=== PATIENT | female | born 1990 | race Asian ===

== ENCOUNTER 2016-08-18 01:44 | Emergency (ER) | payer OTHER ==
[~2016-08-18] VITALS: Ht 172.7 cm; Wt 66.0 kg
[2016-08-18 01:47] VITALS: TEMP 36.8; Ht 172.7 cm; Wt 66.0 kg
[2016-08-18] MEDS ORDERED: OXYCODONE HCL IR 5 MG TAB (IMMEDIATE RELEASE) PO STA (02:02)
--- NOTE | 2016-08-18 02:04 | EMERGENCY ROOM VISIT NOTE ---
History Report prepared by Wes: Shavonne Barbosa Under the Supervision of: Dr. Evan Jackson M.D. First contact with patient: 01:52 Chief Complaint: ABDOMINAL PAIN Stated Complaint: LOWER ABDOMINAL PAIN History of Present Illness The patient is a 26 year old female who presents to the Emergency Room with complaints of persistent urinary symptoms that began two hours ago. She currently rates her discomfort as a 7/10 in severity. The patient states that she had intercourse this evening and then developed dysuria. She denies ever having any symptoms like this in the past. The patient additionally associates abdominal pain with her symptoms today. She denies taking anything for her symptoms today. The patient denies any vaginal bleeding or discharge. The patient denies any active medical problems. She states that she is a [employer] student. Source of History: patient Onset: two hours ago Position: other (global) Symptom Intensity: 7/10 Quality: other (urinary symptoms) Timing: other (persistent) Associated Symptoms: + abdominal pain Review of Systems See HPI for pertinent positives & negatives. A total of 10 systems reviewed and were otherwise negative. Past Medical & Surgical Medical Problems: (1) No chronic problems Family History No pertinent family history stated. Social History Smoking Status: Never Smoker Marital Status: single Occupation Status: [employer] student Current/Historical Medications No Active Prescriptions or Reported Meds Allergies Coded Allergies: No Known Allergies (Unverified , 08/18/16) Physical Exam Vital Signs Date Time Temp Pulse Resp B/P Pulse Ox O2 Delivery O2 Flow Rate FiO2 08/18/16 05:14 56 18 110/66 99 08/18/16 03:36 62 18 119/78 97 Room Air 08/18/16 01:47 36.8 108 20 127/85 97 Room Air Physical Exam GENERAL: Patient is uncomfortable appearing and in minimal distress. HEENT: No acute trauma, normocephalic atraumatic, mucous membranes moist, no nasal congestion, no scleral icterus. NECK: No stridor, no adenopathy, no meningismus, trachea is midline. LUNGS: No dyspnea. Clear to auscultation and equal bilaterally. No wheeze, no rhonchi. HEART: Regular rate and rhythm. No murmurs, rubs, gallops appreciated. ABDOMEN: Tenderness to palpation of the suprapubic abdominal area. Soft, bowel sounds positive, no masses appreciated, no peritonitis. BACK: No midline tenderness, no CVA tenderness PELVIC: Normal external, small vaginal opening with retroflexed uterus. Able to visualize and palpate only anterior portion of cervix, unable to see cervical os. Right adnexal tenderness with bimanual exam. White stringy substance throughout vaginal vault, no bleeding. EXTREMITIES: Normal motion all extremities, no cyanosis, no edema. NEUROLOGIC: Alert and oriented, no acute motor or sensory deficits, no focal weakness, cranial nerves grossly intact. SKIN: No rash, no jaundice, no diaphoresis. Medical Decision & Procedures ER Provider Diagnostic Interpretation: Radiology results and stated below per my review and radiologist interpretation: US Pelvic/Endovag: Round nonvascular echogenic lesion seen within the cervix measuring up to 1 cm. Findings are nonspecific and may represent a polyp versus fibroid. This could be further evaluated with a saline sonohysterogram if clinically indicated. Complex cyst within the right ovary measured 3.9 cm which may represent a hemorrhagic cyst versus an endometrioma. The left ovary is unremarkable. Small amount of free fluid in the pelvis. Radiologist: Daniel Romero MD Study ready at 0330 and initial results transmitted at 9091 Laboratory Results 08/18/16 03:45 Red Blood Count 4.39, Mean Corpuscular Volume 85.0, Mean Corpuscular Hemoglobin 28.9, Mean Corpuscular Hemoglobin Concent 34.0, Mean Platelet Volume 9.3, Neutrophils (%) (Auto) 60.4, Lymphocytes (%) (Auto) 30.2, Monocytes (%) (Auto) 6.5, Eosinophils (%) (Auto) 2.7, Basophils (%) (Auto) 0.1, Neutrophils # (Auto) 4.47, Lymphocytes # (Auto) 2.24, Monocytes # (Auto) 0.48, Eosinophils # (Auto) 0.20, Basophils # (Auto) 0.01 08/18/16 03:45 Test 08/18/16 02:30 08/18/16 03:45 Urine Color YELLOW Urine Appearance CLEAR (CLEAR) Urine pH 6.5 (4.5-7.5) Urine Specific [place] 1.027 (1.000-1.030) Urine Protein NEG (NEG) Urine Glucose (UA) NEG (NEG) Urine Ketones NEG (NEG) Urine Occult Blood NEG (NEG) Urine Nitrite NEG (NEG) Urine Bilirubin NEG (NEG) Urine Urobilinogen NEG (NEG) Urine Leukocyte Esterase NEG (NEG) Urine WBC (Auto) 1-5 /hpf (0-5) Urine RBC (Auto) 0-4 /hpf (0-4) Urine Hyaline Casts (Auto) 1-5 /lpf (0-5) Urine Epithelial Cells (Auto) >30 /lpf (0-5) Urine Bacteria (Auto) 1+ (NEG) Urine Test NEG (NEG) White Blood Count 7.41 K/uL (4.8-10.8) Red Blood Count 4.39 M/uL (4.2-5.4) Hemoglobin 12.7 g/dL (12.0-16.0) Hematocrit 37.3 % (37-47) Mean Corpuscular Volume 85.0 fL (80-100) Mean Corpuscular Hemoglobin 28.9 pg (25-34) Mean Corpuscular Hemoglobin Concent 34.0 g/dl (32-36) Platelet Count 217 K/uL (130-400) Mean Platelet Volume 9.3 fL (7.4-10.4) Neutrophils (%) (Auto) 60.4 % Lymphocytes (%) (Auto) 30.2 % Monocytes (%) (Auto) 6.5 % Eosinophils (%) (Auto) 2.7 % Basophils (%) (Auto) 0.1 % Neutrophils # (Auto) 4.47 K/uL (1.4-6.5) Lymphocytes # (Auto) 2.24 K/uL (1.2-3.4) Monocytes # (Auto) 0.48 K/uL (0.11-0.59) Eosinophils # (Auto) 0.20 K/uL (0-0.5) Basophils # (Auto) 0.01 K/uL (0-0.2) RDW Standard Deviation 37.1 fL (36.4-46.3) RDW Coefficient of Variation 12.0 % (11.5-14.5) Immature Granulocyte % (Auto) 0.1 % Immature Granulocyte # (Auto) 0.01 K/uL (0.00-0.02) Anion Gap 6.0 mmol/L (3-11) Est Creatinine Clear Calc Drug Dose 113.6 ml/min Estimated GFR () 125.3 Estimated GFR (Non- 108.1 BUN/Creatinine Ratio 22.0 (10-20) Calcium Level 8.5 mg/dl (8.5-10.1) Chemistry Specimen Hemolysis Laboratory results as reviewed by me. Medications Administered Medications (Trade) Dose Ordered Sig/Arlin Route Start Time Stop Time Status Last Admin Dose Admin Oxycodone HCl (Roxicodone Immediate Rel Tab) 5 mg NOW STAT PO 08/18/16 02:02 08/18/16 02:04 DC 08/18/16 02:08 5 MG Oxycodone HCl (Roxicodone Immediate Rel 5MG Home Pack) 1 homepack UD ONCE PO 08/18/16 04:45 08/18/16 04:46 DC 08/18/16 05:09 1 HOMEPACK ED Course 0155: The patient was evaluated in room A4B. A complete history and physical exam was performed. 0202: Ordered Oxycodone HCl 5 mg PO. 0331: I reevaluated the patient and she is resting comfortably. I discussed the exam findings with her. I explained to her that she needs to have a pelvic exam and blood work. She states that she has never seen a sugar grinder in the past. 0345: I performed the pelvic exam at this time. See physical exam for further detail. She was feeling much better at this time. 0423: I discussed the patients case with Dr. Smith, fluxer. She agrees with outpatient treatment and follow-up for the patient. 0445: Ordered Oxycodone HCl 1 homepack PO. 0448: I reevaluated the patient and she is feeling better. I discussed the exam findings with her and I discussed the treatment plan. She verbalized complete understanding and agreement. The patient is ready to go home. Medical Decision Differential: UTI, Urethritis, Pyelonephritis, STI, Herpetic, Vaginitis, PID, Cystitis, Ovarian cyst/rupture, amongst other pathologies entertained. 26 yr old female with acute onset pelvic discomfort. US with hemorrhagic right ovarian cyst as well as polyp/mass within cervix. Mild tachy without hypotension and resolved after pain meds. HgB OK. Pelvic exam with retro uterus no bleeding. Stable and feeling well without further discomfort. Discharge to home with planned FINISHING SUPERVISOR follow up already scheduled. To go oxy IR with instructions regarding this. RTED if worsening or other concerns. Exam not consistent with PID/torsion, and there is no evidence that she requires emergent surgical evaluation. Consults Time Called: [phone] Consulting Physician: Dr. Smith, fluxer Returned Call: [phone] I discussed the patients case with Dr. Smith, fluxer. She agrees with outpatient treatment and follow-up for the patient. Impression Primary Impression: Hemorrhagic ovarian cyst Additional Impressions: Cyst of right ovary Polyp, cervix Scribe Attestation The scribe's documentation has been prepared under my direction and personally reviewed by me in its entirety. I confirm that the note above accurately reflects all work, treatment, procedures, and medical decision making performed by me. Departure Information Dispostion Home / Self-Care Prescriptions No Active Prescriptions or Reported Meds Referrals Kelsie Smith MD [facility] Forms HOME CARE DOCUMENTATION FORM, IMPORTANT VISIT INFORMATION Patient Instructions Cyst Ruptured Ovarian Tx, My [facility] Additional Instructions It is very important you follow up with Skin Care Consultant. Contact information has been provided to you. You will need to have further evaluation and follow up as soon as possible. This is very important. Your Ultrasound showed as cyst of the right ovary that has had some bleeding, this is referred to as a Hemorrhagic Cyst. This can be very painful though usually resolve within a few days. Return immediately if severe pain, fevers, vomiting, passing out or other concerns. Use pain medications as needed. You can take 1 tablet every 4 hours as needed for pain. You have received a narcotic pain medication. These medications may cause drowsiness and should not be used with other sedative medications. Do not drive, drink alcohol, perform dangerous activities, nor make important decisions after taking these medications. [facility] use or inappropriate use may lead to addiction. There is a polyp noted in your cervix which will need to be evaluated by the Skin Care Consultant. Problem Qualifiers
[2016-08-18 03:05] LABS: URINE APPEARANCE CLEAR (CLEAR); URINE BILIRUBIN NEG (NEG); URINE COLOR YELLOW; URINE EPITHELIAL CELL AUTO >30 /lpf (0-5); URINE NITRITE NEG (NEG); URINE PH 6.5 (4.5-7.5); URINE SPECIFIC GRAVITY 1.027 (1.000-1.030); UROBILINOGEN NEG (NEG); ZZUR CULT IF INDIC CLEAN CATCH YES
[2016-08-18 03:06] LABS: MANUAL MICROSCOPIC REQUIRED? NO; REVIEW REQ? NO
[2016-08-18 03:55] LABS: BASO % 0.1 %; BASO ABS # 0.01 K/uL (0-0.2); COMPLETE YES; EOS % 2.7 %; HEMATOCRIT 37.3 % (37-47); IG% 0.1 %; LYMPH % 30.2 %; LYMPH ABS # 2.24 K/uL (1.2-3.4); MEAN CORPUSCULAR HEMOGLOBIN 28.9 pg (25-34); MEAN PLATELET VOLUME 9.3 fL (7.4-10.4); MONO % 6.5 %; NEUT % 60.4 %; PLATELET COUNT 217 K/uL (130-400); RED BLOOD COUNT 4.39 M/uL (4.2-5.4); WHITE BLOOD COUNT 7.41 K/uL (4.8-10.8)
[2016-08-18 04:13] LABS: CALCIUM 8.5 mg/dl (8.5-10.1); CREATININE 0.77 mg/dl (0.60-1.20); POTASSIUM 4.2 mmol/L (3.5-5.1)
[2016-08-18] MEDS ORDERED: OXYCODONE IR HOME PACK PO ONE (04:45)
[2016-08-18 05:14] VITALS: BP 110/66; PULSE 56; O2SAT 99
--- NOTE | 2016-08-18 07:24 | DIAGNOSTIC IMAGING REPORT ---
PELVIC ULTRASOUND, TRANSABDOMINAL AND TRANSVAGINAL HISTORY: sudden onset suprapubic pain s/p intercourse COMPARISON: None. FINDINGS: Uterus: There is a round avascular echogenic lesion within the cervix measuring 1 cm. Endometrial stripe: 1 cm in thickness. Right ovary: Complex cyst within the right ovary measuring 3.9 cm. This favors a hemorrhagic cyst. Left ovary: Normal in size and demonstrates normal color flow. Miscellaneous:Small amount of pelvic free fluid. IMPRESSION: 1. A 3.9 cm complex cyst within the right ovary which favors a hemorrhagic cyst. Follow-up pelvic ultrasound in 6-8 weeks is recommended to ensure resolution. 2. A round avascular echogenic lesion within the cervix measuring 1 cm. This is nonspecific but could represent a small polyp. Nonemergent Gynecologic consultation is recommended. Electronically signed by: Ru De Souza M.D. 08/18/2016 7:21 AM Dictated Date/Time: 08/18/2016 7:18 AM
== END 2016-08-18 05:15 | disposition home or self-care (01) ==
LOC: C.EDB 01:45 → C.EDA 05:15
DX: N83.201 Unspecified ovarian cyst, right side (principal); N84.1 Polyp of cervix uteri

== ENCOUNTER → 2016-10-15 | Outpatient (CLI) | payer OTHER | END | disposition home or self-care (01) | LOC: C.PAPS 08:56 | PROVIDERS: ATTEND Obstetrics & Gynecology | DX: Z12.4 Encounter for screening for malignant neoplasm of cervix (principal) ==